=== PATIENT | female | born 1950 | race Caucasian/White ===

== ENCOUNTER → 2018-09-18 | Outpatient (CLI) | payer MEDICARE ==
--- NOTE | 2018-09-19 13:15 | Diagnostic Imaging Report ---
EXAM: Bone mineral density study 09/18/2018 1:15 PM INDICATION: ^OSTEOPOROSIS SCREENING COMPARISON: Previous DEXA none. Baseline DEXA none FINDINGS: Evaluation of the left hip and lumbar spine was performed. The study is technically adequate. The patient's fracture risk is compared to an age-matched control. The patient denies prior surgery/fracture of the spine, hips or forearm. LEFT HIP * Femoral neck bone mineral density: 0.750 gm/cm2, T-score is -0.9, Z-score is 0.7. * Total bone mineral density: 0.781 gm/cm2, T-score is -1.3, Z-score is 0.0. LUMBAR SPINE * Total bone mineral density: 0.771 gm/cm2, T-score is -2.5, Z-score is -0.7. IMPRESSION: 1. LEFT HIP: Bone mineralization by WHO Classification is osteopenia, the fracture risk is moderate. 2. LUMBAR SPINE: Bone mineralization by WHO Classification is osteoporosis, the fracture risk is high. <T score: NL = -1 or higher Osteopenia = -1 to -2.5 Osteoporosis = -2.5 or lower Z score: < - 2 concerning for path> Signed by: Dr. Lawrence Guy M.D. on 09/19/2018 1:12 PM
== END ==
LOC: DX 13:06
PROVIDERS: ATTEND Internal Medicine
DX: M85.88 Other specified disorders of bone density and structure, other site (principal); Z78.0 Asymptomatic menopausal state
CPT/HCPCS: 77080

== ENCOUNTER → 2020-06-12 | Outpatient (CLI) | payer MEDICARE | LOC: MRI 09:16 | PROVIDERS: ATTEND Internal Medicine | DX: M25.561 Pain in right knee (principal); M25.562 Pain in left knee ==

== ENCOUNTER 2020-08-11 08:37 | Observation (INO) | payer MEDICARE ==
[2020-08-07 12:49] LABS: BASOPHILS % 0.6 % (0.0-1.0); EOSINOPHILS # (AUTO) 0.1 (0.0-0.4); EOSINOPHILS % 2.2 % (0.0-6.0); HEMOGLOBIN 11.4 g/dL (12.0-16.0); LYMPHOCYTES # (AUTO) 1.4 (1.0-3.2); LYMPHOCYTES % 21.2 % (18.0-39.1); MEAN CORPUSCULAR VOLUME 86.6 fL (81-99); MONOCYTES # (AUTO) 0.6 (0.2-0.8); MONOCYTES % 8.8 % (4.4-11.3); NEUTROPHILS # (AUTO) 4.3 (2.1-6.9); PLATELET COUNT 382 x10e3/uL (140-360); RED BLOOD COUNT 4.39 x10e6/uL (3.6-5.1); RED CELL DISTRIBUTION WIDTH 14.7 % (11.7-14.4)
[2020-08-07 13:07] LABS: ANION GAP 14.1 mmol/L (8-16); BLOOD UREA NITROGEN 14 mg/dL (7-26); BUN/CREATININE RATIO 18 (6-25); CARBON DIOXIDE 23 mmol/L (22-29); CHLORIDE 107 mmol/L (98-107); EST GLOMERULAR FILTRATION RATE > 60 ML/MIN (60-); GLUCOSE 149 mg/dL (74-118); POTASSIUM 4.1 mmol/L (3.5-5.1); SODIUM 140 mmol/L (136-145)
[~2020-08-11] VITALS: Ht 152.4 cm; Wt 76.2 kg
[~2020-08-11 08:37] MED LIST: ALENDRONATE SOD70 MG PO; ASPIRIN81 MG PO; ATORVASTATIN CA20 MG PO; CLONIDINE HCL0.1 MG PO; FAMOTIDINE20 MG PO; LINZESS72 MCG PO; LIOTHYRONINE SO5 MCG PO; LISINOPRIL-HCT1 EACH PO; OMEPRAZOLE40 MG PO; PROZAC40 MG PO; ROPIVACAINE 246.25 MG, EPINEPHRINE HCL 1:1000 1ML 0.5 MG, CLONIDINE HCL 0.08 MG, KETORO... INJ ONE; SYNTHROID125 MCG PO; XANAX1 MG PO
[2020-08-11] MEDS ORDERED: CEFAZOLIN SOD 1 GM/NS 50ML 100 ML IV ONE (09:00)
[2020-08-11] MEDS ORDERED: CELECOXIB 200 MG CAP ONE (09:00)
[2020-08-11] MEDS ORDERED: GABAPENTIN 300 MG CAP ONE (09:00)
[2020-08-11] MEDS ORDERED: DEXAMETHASONE SOD PHOS 10 MG/1 ML VIAL ONE (09:00)
[2020-08-11] MEDS ORDERED: VANCOMYCIN HCL 1,000 MG ONE (10:05)
[2020-08-11] MEDS ORDERED: SODIUM CHLORIDE 0.9% 500ML 500 ML ONE (10:06)
[2020-08-11] MEDS ORDERED: TRANEXAMIC ACID 1,000 MG/10 ML ML ONE (10:06)
[2020-08-11] MEDS ORDERED: ROPIVACAINE 0.5% 5 MG/ML 30 ML SDV ONE (12:17)
[2020-08-11] MEDS ORDERED: FENTANYL CITRATE/PF 100MCG/2 ML INJ ONE ×2 (12:31→13:06)
[2020-08-11] MEDS ORDERED: MIDAZOLAM HCL 2 MG/2 ML VIAL ONE (12:31)
[2020-08-11] MEDS ORDERED: DIPHENHYDRAMINE HCL INJ 50 MG/ML VIAL IV PRN (13:00)
[2020-08-11] MEDS ORDERED: ACETAMINOPHEN 650 MG SUPP PR PRN (13:00)
[2020-08-11] MEDS ORDERED: DOCUSATE SODIUM 100 MG CAP PO PRN (13:00)
[2020-08-11] MEDS ORDERED: HYDROCODONE/APAP 7.5MG-325MG 1 EA TAB PO PRN (13:00)
[2020-08-11] MEDS ORDERED: KETOROLAC TROMETHAMINE 30 MG/ML VIAL IV PRN (13:00)
[2020-08-11] MEDS ORDERED: ONDANSETRON HCL INJ 2MG/ML 2ML 2 MG/ML VIAL IV PRN (13:00)
[2020-08-11] MEDS ORDERED: PROPOFOL IV EMULSION 10 MG/ML 20 ML VIAL ONE (13:04)
[2020-08-11] MEDS ORDERED: SEVOFLURANE INHAL SOLN 250 ML PEN BTL ONE (13:04)
[2020-08-11] MEDS ORDERED: ONDANSETRON HCL INJ 2MG/ML 2ML 2 MG/ML VIAL ONE (13:04)
[2020-08-11] MEDS ORDERED: LIDOCAINE HCL 2% JELLY 5 ML TUBE ONE (13:04)
[2020-08-11] MEDS ORDERED: LIDOCAINE HCL 2% LOCAL INJ 5 ML SDV VIAL INJ ONE (13:04)
[2020-08-11] MEDS ORDERED: HYDROMORPHONE 1MG/1ML INJ ONE (13:19)
[2020-08-11] MEDS ORDERED: MORPHINE SULFATE INJ 4 MG/ML INJ 1ML ONE (14:25)
[2020-08-11 14:59] VITALS: BP 136/55
[2020-08-11 15:06] VITALS: BP 136/55
[2020-08-11] MEDS ORDERED: ALPRAZOLAM 1 MG TAB PO PRN (15:15)
[2020-08-11] MEDS: CELECOXIB 100 MG CAP PO SCH (16:33)
[2020-08-11] MEDS: PANTOPRAZOLE SOD 40 MG TABEC PO SCH (16:33)
[2020-08-11] MEDS: ASPIRIN 325 MG TAB PO SCH (16:33)
[2020-08-11] MEDS: LIOTHYRONINE SODIUM 5 MCG TAB PO SCH (16:33)
[2020-08-11] MEDS: CEFAZOLIN SOD 1 GM/NS 50ML 50 ML IV SCH ×2 (18:08→22:52)
[2020-08-11] MEDS: SODIUM CHLORIDE 0.9% 1000ML 1,000 ML IV SCH ×2 (18:08→23:00)
[2020-08-11 20:00] VITALS: BP 107/48
[2020-08-11] MEDS ORDERED: ATORVASTATIN 20 MG TAB PO SCH (21:00)
[2020-08-11] MEDS ORDERED: FAMOTIDINE 20 MG TAB PO SCH (21:00)
[2020-08-11] MEDS ORDERED: ZOLPIDEM TARTRATE 5 MG TAB PO PRN (21:00)
[2020-08-11] MEDS ORDERED: CLONIDINE HCL 0.1 MG TAB PO SCH (21:00)
[2020-08-11] MEDS: HYDROCODONE/APAP 5MG-325MG TAB PO PRN (21:43)
[2020-08-12] VITALS: BP 112/59
[2020-08-12 04:00] VITALS: BP 114/55
[2020-08-12 05:28] LABS: HEMATOCRIT 29.8 % (34.2-44.1); HEMOGLOBIN 9.2 g/dL (12.0-16.0)
[2020-08-12] MEDS: CEFAZOLIN SOD 1 GM/NS 50ML 50 ML IV SCH (05:47)
[2020-08-12] MEDS: HYDROCODONE/APAP 5MG-325MG TAB PO PRN (05:58)
[2020-08-12] MEDS ORDERED: LEVOTHYROXINE SODIUM 125 MCG TAB PO SCH (06:30)
[2020-08-12 07:28] VITALS: BP 108/49
[2020-08-12 07:46] VITALS: BP 108/49
[2020-08-12] MEDS ORDERED: FLUOXETINE HCL 20 MG CAP PO SCH (09:00)
[2020-08-12] MEDS ORDERED: ASPIRIN 81 MG CHEW TAB PO SCH (09:00)
[2020-08-12] MEDS: ASPIRIN 325 MG TAB PO SCH (09:00)
[2020-08-12] MEDS: LIOTHYRONINE SODIUM 5 MCG TAB PO SCH (09:38)
[2020-08-12] MEDS: CELECOXIB 100 MG CAP PO SCH (09:38)
[2020-08-12] MEDS: PANTOPRAZOLE SOD 40 MG TABEC PO SCH (09:38)
[2020-08-12] MEDS ORDERED: ACETAMINOPHEN 1000 MG/100 ML IV PRN (13:00)
== END 2020-08-12 10:52 | disposition home or self-care (01) ==
LOC: OR 08:37 → PACU V 12:49 → MED/SURG 14:47
PROVIDERS: ADMIT Specialist; ATTEND Specialist
DX: M17.0 Bilateral primary osteoarthritis of knee (principal); F41.9 Anxiety disorder, unspecified; F32.9 Major depressive disorder, single episode, unspecified; E05.90 Thyrotoxicosis, unspecified without thyrotoxic crisis or storm; E78.00 Pure hypercholesterolemia, unspecified; K58.9 Irritable bowel syndrome, unspecified; Z20.822 Contact with and (suspected) exposure to COVID-19; Z01.818 Encounter for other preprocedural examination
CPT/HCPCS: 27447; 36415 ×2; 71046; 73560; 80048; 85014; 85018; 85025; 86850; 86900; 86920; 97110 ×2; 97116 ×2; 97161; C1713; G0378 ×2; J0171; J0690 ×2; J1100; J1170; J1885; J2001 ×2; J2270; J2405; J2704; J2795; J3010; J3370; J7030; J7040; S0164 ×2; U0002; J1200; J2250

== ENCOUNTER 2020-10-12 13:53 | Outpatient (RCR) | payer MEDICARE ==
[~2020-10-12 13:53] MED LIST changes: -ROPIVACAINE 246.25 MG, EPINEPHRINE HCL 1:1000 1ML 0.5 MG, CLONIDINE HCL 0.08 MG, KETORO... INJ ONE
== END 2020-10-19 ==
LOC: PT 13:53
PROVIDERS: ATTEND Specialist

== ENCOUNTER 2020-10-29 13:59 | Outpatient (RCR) | payer MEDICARE | END 2020-11-18 | LOC: PT 13:59 | PROVIDERS: ATTEND Specialist | DX: Z47.1 Aftercare following joint replacement surgery (principal); Z96.651 Presence of right artificial knee joint ==